=== PATIENT | female | born 1995 | race Caucasian/White ===

== ENCOUNTER 2023-10-04 20:13 | Emergency (ER) | payer OTHER, BC ==
[~2023-10-04] VITALS: Ht 157.5 cm; Wt 58.1 kg
[2023-10-04 20:40] VITALS: PULSE 67; RESP 17; TEMP 97.9; O2SAT 99
[2023-10-04] MEDS ORDERED: NAPR-1172 PO (23:23)
[2023-10-05 00:58] VITALS: BP_SYST 136; PULSE 64; RESP 20; TEMP 97.3; O2SAT 99
== END 2023-10-04 23:28 | disposition home or self-care (01) ==
LOC: SED 20:13
DX: S80.11XA Contusion of right lower leg, initial encounter (principal); S09.90XA Unspecified injury of head, initial encounter; R42 Dizziness and giddiness; M54.2 Cervicalgia; Z79.899 Other long term (current) drug therapy; V89.2XXA Person injured in unspecified motor-vehicle accident, traffic, initial encounter; Y93.89 Activity, other specified; Y92.89 Other specified places as the place of occurrence of the external cause; Y99.8 Other external cause status
CPT/HCPCS: 70450-TC; 73590; 99284